=== PATIENT | male | born 1945 | race Caucasian/White ===

== ENCOUNTER 2018-02-22 16:15 | Inpatient (IN) | payer MEDICARE ==
[~2018-02-22] VITALS: Ht 177.8 cm; Wt 77.1 kg
--- NOTE | ~2018-02-22 | MORECARE ---
CASE MANAGEMENT DISCHARGE SUMMARY PATIENT: YESSY SARABIA UNIT: [id number] ADM DATE: 02/22/18 AGE: 72 : 47 SEX: M ROOM/BED: D.2222 AUTHOR: GLORIA,DOC PHYSICIAN: REFERRING PHYSICIAN: GEOFFREY LYMAN MD DATE OF SERVICE: 02/24/18 Discharge Plan Patient Name: YESSY SARABIA Facility: [facility]:[place] : 1945 Planned Disposition: Home Anticipated Discharge Date: Discharge Date: Expected LOS: Initial Reviewer: [email or web address] Initial Review Date: 02/24/2018 Generated: 02/24/18 5:48 pm Comments DCP- Discharge Planning Updated by [email or web address]: Lona Ratliff on 02/24/18 3:[address] Patient Name: YESSY SARABIA Admission Status: ER Accout number: [id number] Admission Date: 02-22-2018 : 1945 Admission Diagnosis: Attending: GEOFFREY LYMAN Current LOS: 2 Anticipated DC Date: Planned Disposition: Home Primary Insurance: [employer] ADV Discharge Planning Comments: CM met with patient to discuss discharge planning. He lives with his fianc?e, Krys and child Marleny. He states he is independent with all ADL's and IADL's. States he is still working. States he does have a nebulizer that he uses as needed. States he does not have need for additional DME at this time. Declines need for home health. No needs identified at this time. CM will continue to follow and assist with discharge planning/needs. Hunter Trapper: Lona Ratliff DCPIA - Discharge Planning Initial Assessment Updated by [email or web address]: Lona Ratliff on 02/24/18 4:42 pm * Is the patient Alert and Oriented? Yes * How many steps to enter\exit or inside your home? 2/0 * PCP Dr. Peng in [place] Mainly sees John Lujan at Dr. Mccain's office * Pharmacy [facility] in [place] * Preadmission Environment Home with Family * ADLs Independent * Equipment Nebulizer * List name and contact numbers for known caregivers / representatives who currently or will assist patient after discharge: Krys Baldwin [phone] * Verbal permission to speak to the caregivers and representatives has been obtained from the patient. Yes * Community resources currently utilized None * Additional services required to return to the preadmission environment? No * Can the patient safely return to the preadmission environment? Yes * Has this patient been hospitalized within the prior 30 days at any hospital? No Last DP export: 02/24/18 3:40 p Patient Name: YESSY SARABIA Page [id number] at 1648 All edits/amendments must be made on the electronic document DICTATION DATE: 02/24/181647 FOUR HORSE HITCH DRIVER: RETA 02/24/181647 RPT#: [id number] DC DATE: STATUS: ADM IN [facility] [address] [place] [address] END OF REPORT
--- NOTE | ~2018-02-22 | CN ---
PATIENT NAME:YESSY SARABIA MEDICAL RECORD: [id number] : [birth year] LOCATION:D.MS [id number] ADMIT DATE: 02/22/18 ACCOUNT: [id number] CONSULTING PHYSICIAN: DONNA LANDRY MD REFERRING PHYSICIAN: GEOFFREY LYMAN MD DATE OF CONSULTATION: 02/25/2018 DIAGNOSES: 1. Claudication. 2. Peripheral vascular disease. 3. Previous peripheral stenting. 4. Pneumonia. 5. COPD. 6. Smoking. 7. Hyperlipidemia. 8. Hypertension. HISTORY OF PRESENT ILLNESS: This is a gentleman with a past history of peripheral vascular disease, but no history of coronary artery disease, presents with 2 complaints, one is cough, sputum production, found to have pneumonia, he is undergoing treatment for that, but the other is claudication symptomatology right lower extremity. He does have stents in both lower extremities from previous peripheral intervention done in [place] approximately 2 years ago. The leg is worsening with any mild exertion even across 1 room. He has severe lifestyle limiting claudication. PHYSICAL EXAMINATION: GENERAL APPEARANCE: Well-nourished, well-developed, appears stated age. Level of distress, comfortable. PSYCHIATRIC: Mental status, alert, normal affect. Orientation, oriented to time, place and person. EYES: Lids and conjunctiva, noninjected. No discharge, no pallor. ENT: Lips, teeth, gums, normal dentition. Oropharynx, no cyanosis, no pallor. NECK: Carotid arteries, bilateral normal upstroke, no bruits, no thrills. JUGULAR VEINS: No jugular venous pressure or distention. CERVICAL LYMPH NODES: Nontender, nonenlarged. THYROID: Not enlarged. Nontender. No nodules. LUNGS: Respiratory effort, unlabored. CHEST: Normal curvature. No thoracic deformity. No chest wall tenderness. Percussion, resonant. Auscultation, clear. No wheezes, no rales, no rhonchi. CARDIOVASCULAR: Precordial exam, nondisplaced. No heaves or pericardial thrills. Rate and rhythm, regular. Heart sounds, normal S1, normal S2. No S3, no gallop, no rub. Systolic murmur, not heard. Diastolic murmur, not heard. EXTREMITIES: No cyanosis, no edema. Peripheral pulses, full and equal in all extremities, except as noted. No bruits appreciated. ABDOMEN: Soft, nondistended. Normal aorta. No bruit. Nontender. No masses. Liver, nontender, no hepatomegaly. Spleen, nontender, no splenomegaly. MUSCULOSKELETAL: No joint tenderness. No joint swelling. No erythema. NEUROLOGICAL: Normal gait, normal strength, normal tone. SKIN: Warm and dry. OVERALL IMPRESSION: Claudication, right lower extremity, most likely he has either semi-acute closure of the previously placed stents or new disease. We will proceed with aortofemoral runoff. Further care depends on findings of the aortofemoral runoff. CONSULT REPORT [id number] YESSY SARABIA TRANSINT:[id number] Voice Confirmation ID: [id number] DOCUMENT ID: [id number] DONNA LANDRY MD at 1025 CC: [id number] DICTATION DATE: 02/25/18816 MANUSCRIPTS ARCHIVIST: 02/25/18 0913 ADM IN [place] [id number] [place] [id number]
--- NOTE | ~2018-02-22 | MORECARE ---
CASE MANAGEMENT DISCHARGE SUMMARY PATIENT: YESSY SARABIA UNIT: [id number] ADM DATE: 02/22/18 AGE: 72 : [birth year] SEX: M ROOM/BED: D.2222 AUTHOR: ZAID CASTRO PHYSICIAN: REFERRING PHYSICIAN: GEOFFREY LYMAN MD DATE OF SERVICE: 02/24/18 Discharge Plan Patient Name: YESSY SARABIA Facility: [facility]:[place] : 1945 Planned Disposition: Home Anticipated Discharge Date: Discharge Date: Expected LOS: Initial Reviewer: [email or web address] Initial Review Date: 02/24/2018 Generated: 02/24/18 5:40 pm Patient Name: YESSY SARABIA Page [id number] at 1640 All edits/amendments must be made on the electronic document DICTATION DATE: 02/24/18 1639 SOLE CONDITIONER: RETA 02/24/18 1639 RPT#: [id number] DC DATE: STATUS: ADM IN [facility] [address] [place] [address] END OF REPORT
--- NOTE | ~2018-02-22 | MORECARE ---
CASE MANAGEMENT DISCHARGE SUMMARY PATIENT: YESSY SARABIA UNIT: [id number] ADM DATE: 02/22/18 AGE: 72 : [birth year] SEX: M ROOM/BED: D.3346 AUTHOR: GLORIA,DOC PHYSICIAN: REFERRING PHYSICIAN: GEOFFREY LYMAN MD DATE OF SERVICE: 02/28/18 Discharge Plan Patient Name: YESSY SARABIA Facility: [facility]:[place] : 1945 Planned Disposition: Home Anticipated Discharge Date: 02/27/18 Discharge Date: 02/27/2018 Expected LOS: 5 Initial Reviewer: [email or web address] Initial Review Date: 02/24/2018 Generated: 02/28/18 1:12 pm Comments DCP- Discharge Planning Updated by [email or web address]: Lona Ratliff on 02/24/18 3:[address] Patient Name: YESSY SARABIA Admission Status: ER Accout number: [id number] Admission Date: 02-22-2018 : 1945 Admission Diagnosis: Attending: GEOFFREY LYMAN Current LOS: 2 Anticipated DC Date: Planned Disposition: Home Primary Insurance: [employer] ADV Discharge Planning Comments: CM met with patient to discuss discharge planning. He lives with his fianc?e, Krys and child Marleny. He states he is independent with all ADL's and IADL's. States he is still working. States he does have a nebulizer that he uses as needed. States he does not have need for additional DME at this time. Declines need for home health. No needs identified at this time. CM will continue to follow and assist with discharge planning/needs. Card Brusher: Lona Ratliff DCPIA - Discharge Planning Initial Assessment Updated by [id number]: Lona Ratliff on 02/24/18 4:42 pm * Is the patient Alert and Oriented? Yes * How many steps to enter\exit or inside your home? 2/0 * PCP Dr. Peng in [place] Mainly sees John Lujan at Dr. Mccain's office * Pharmacy [facility] in [place] * Preadmission Environment Home with Family * ADLs Independent * Equipment Nebulizer * List name and contact numbers for known caregivers / representatives who currently or will assist patient after discharge: Krys Huerta Nicolasa [phone] * Verbal permission to speak to the caregivers and representatives has been obtained from the patient. Yes * Community resources currently utilized None * Additional services required to return to the preadmission environment? No * Can the patient safely return to the preadmission environment? Yes * Has this patient been hospitalized within the prior 30 days at any hospital? No Coverage Notice Reviewer: [id number] Lobito Charles Notice Issued Date-Time: 02/27/2018 12:25 Notice Type: IM Discharge Notice Notice Delivered To: Patient Relationship to Patient: Pony Rougher Name: Delivery Method: HAND - Hand Delivered Nichelle Days: Prior Verbal Notification: Recipient Understood Notice: Yes Recipient Signature: Yes Med Rec Note Co-signed by Attending: Coverage Notice Comment: CM discussed discharge IMM with the patient. He reviewed the form and had no questions or concerns. Signature obtained. Copy to the patient. Copy to the patient chart. Last DP export: 02/27/18 11:43 a Patient Name: YESSY SARABIA Page [id number] at 1212 All edits/amendments must be made on the electronic document DICTATION DATE: 02/28/18 121 EXPANSION JOINT FINISHER: RETA 02/28/18 121 RPT#: [id number] DC DATE:02/27/18 STATUS: DIS IN [facility] [address] [place] [address] END OF REPORT
--- NOTE | ~2018-02-22 | OP ---
PATIENT NAME: YESSY SARABIA MEDICAL RECORD: [id number] :[birth year] LOCATION:D.M2 D.2115 ADMISSION DATE:02/22/18 SURGEON: DONNA LANDRY MD DATE OF OPERATION: 02/25/2018 PROCEDURES: 1. Stent placement, iliac, left. 2. GENERAL FARMWORKER iliac, left. 3. Aortofemoral runoff. 4. Abdominal angiography. INDICATION: Claudication and peripheral vascular disease. PROCEDURE IN DETAIL: After informed consent was obtained and after a detailed description of risks, benefits as well as alternative therapies, the patient elected to proceed with angiogram and angioplasty. The left femoral area was prepped and draped in normal sterile fashion. Left femoral artery was cannulated via modified Seldinger technique with placement of 6-[place] sheath. All catheters exchanged through this sheath. FINDINGS: The abdominal aortography was performed. The catheter was pulled down for aortofemoral runoff. Abdominal aortography reveals no significant abdominal aortic disease, no dissection or aneurysm formation. RIGHT LEG: A. Iliac: The common internal and external iliacs have moderate irregularities, but no flow-limiting stenosis. B. Femoral system: The common and deep femoral are widely patent. Superficial femoral was totally occluded from the ostium to the distal aspect. There are previously placed stents in the mid SFA. These were totally occluded. This reconstitutes via collaterals off the deep femoral. The distal SFA has a good lumen suitable for grafting. C. Popliteal and infrapopliteal vessels are patent with preserved 3-vessel runoff to the foot. LEFT LEG: A. Iliac: Common iliac in the distal portion has 80+ percent stenosis, otherwise the iliacs have moderate irregularities. B. Femoral system: The common superficial and deep femoral have moderate irregularities, but no flow-limiting stenosis. C. Popliteal and infrapopliteal vessels are patent with good 3-vessel runoff to the foot. GENERAL FARMWORKER STENT OF THE LEFT COMMON ILIAC: This balloon and stent used was a 8 x 18 Cordis Veronica. Result was 0% residual. OVERALL IMPRESSION: Successful GENERAL FARMWORKER stent of the left common iliac going from 80+ percent stenosis to 0% residual throughout. There was a total occlusion of the right SFA that is not amenable to transcatheter revascularization. Evaluate for femoral popliteal bypass graft surgery. TRANSINT:[id number] Voice Confirmation ID: [id number] DOCUMENT ID: [id number] OPERATIVE REPORT [id number] YESSY SARABIA, DONNA PERALTA at 1108 CC: [id number] DICTATION DATE: 02/25/18 1539 SYSTEMS ACCOUNTANT: 02/25/18 2357 DIS IN 02/27/18 [place] [id number] [place] [id number]
--- NOTE | ~2018-02-22 | HEMODYNAMI ---
PATIENT:YESSY SARABIA MEDICAL RECORD: [id number] : 47 [id number] ADMISSION DATE: 02/22/18 Generatedon:02/25/201815:51 Patient name: YESSY SARABIA Patient #: [id number] SSN: : 1945 Date of study: 02/25/2018 Page: Of Hemodynamic Procedure Report Patient Data Patient Demographics Procedure consent was obtained First Name: YESSY Gender: Male Last Name: NO : 1945 [facility] Initial: MENDEZ Age: 72 year(s) Patient #: [id number] Race: Additional ID: [id number] Contact details Address: [address] [place] [address] State: [place] City: [place] Zip code: [address] Admission Admission Data Admission Date: 02/22/2018 Admission Time: 18:50 Room #: D.2222 Procedure Procedure Types Cath Procedure Peripheral Cath Diagnostic Procedure Technical Illustrator Peripheral Procedures Eezcl-Oeaomkx-Rld-Off Peripheral vascular Intervention Stent Stent Iliac w/plasty Initial Procedure Description Procedure Date Procedure Date: 02/25/2018 Procedure Start Time: 15:21 Procedure End Time: 15:38 Procedure Staff Name Function Chirag Bravo MD Performing Physician Florinda Hernandez RT Monitor Valerie Zamarripa RT Scrub Danielle Castorena RN Nurse Procedure Data Cath Procedure Fluoroscopy Diagnostic fluoroscopy Total fluoroscopy Time: 1.6 time: 1.6 min min Diagnostic fluoroscopy Total fluoroscopy dose: 159 dose: 159 mGy mGy Contrast Material Contrast Material Type Amount (ml) Isovue 300 93 Entry Location Entry Primary Successful Side Size Upsize Upsize Entry Closure Succes sful Closure Location (Fr) 1 (Fr) 2 (Fr) Remarks Device Remarks Femoral Left 5 Fr 6 Fr 6 Fr Exoseal artery Long Short Estimated blood loss: 5 ml Diagnostic catheters Device Type Used For End Catheter Placement DIAGNOSTIC UF 5Fr Multi-vessel catheter ([id number]) Angiography Procedure Complications No complications Procedure Medications Medication Administration Route Dosage 0.9% NaCl I.V. 100 ml/hr Oxygen etCO2 Nasal cannula 2 l/min Lidocaine 2% added to field 20 Heparin Flush Bag added to field 2 bags (1000units/500ml NS) Heparin Bolus I.V. 4000 units Versed I.V. 2 mg Fentanyl I.V. 100 mcg Versed I.V. 2 mg Fentanyl I.V. 100 mcg Versed I.V. 2 mg Hemodynamics Rest Heart Rate: 94 (bpm) Snapshots Pre Cath Intra NCS Post Cath Vital Signs Time Heart Resp SPO2 etCO2 NIBP (mmHg) Rhythm Pain Sedation Rate (ipm) (%) (mmHg) Status Level (bpm) 15:12:44 98 10 98 36.3 159/98(144) NSR 0 (11) 10(A) , No pain 15:17:04 96 16 97 23.4 146/81(116) NSR 0 (11) 10(A) , No pain 15:21:20 92 10 97 20 138/82(108) NSR 0 (11) 10(A) , No pain 15:26:05 95 19 95 23.4 120/79(90) NSR 0 (11) 10(A) , No pain 15:30:56 96 17 98 37.1 136/83(110) NSR 0 (11) 10(A) , No pain 15:35:05 96 18 94 9.8 143/86(112) NSR 0 (11) 9(A) , No pain Medications Time Medication Route Dose Verified Delivered Reason Notes Effectiveness by by 14:38:58 0.9% NaCl I.V. 100 Chirag Danielle used for ml/hr Lawrence Castorena study abroad coordinator 14:39:05 Oxygen etCO2 2 Chirag Danielle used for Nasal l/min Lawrence Castorena procedure cannula RN 14:39:12 Lidocaine 2% added 20ml Chirag Beard for local to vial Lawrence Bravo MD anesthetic field 14:39:17 Heparin Flush added 2 Chirag Chirag used for Bag to bags Lawrence Bravo MD procedure (1000units/500ml field NS) 15:19:12 Versed I.V. 2 mg Chirag Danielle for sedation Lawrence Castorena RN 15:19:22 Fentanyl I.V. 100 Chirag Danielle for mcg Lawrence Castorena anticoagulation RN 15:24:21 Versed I.V. 2 mg Chirag Santos for Lawrence Castorena anticoagulation RN 15:24:34 Fentanyl I.V. 100 Chirag Santos for mcg Lawrence Castorena anticoagulation RN 15:28:01 Heparin Bolus I.V. 4000 Chirag Beard for verif ied units Lawrence Bravo MD anticoagulation with Dr. Bravo 15:28:43 Versed I.V. 2 mg Chirag Santos for Lawrence Castorena anticoagulation whittling room operator Log Time Note 14:31:12 Informed consent obtained and on chart 14:38:58 0.9% NaCl 100 ml/hr I.V. was administered by Danielle Castorena RN; used for procedure; 14:39:05 Oxygen 2 l/min etCO2 Nasal cannula was administered by Danielle Castorena RN; used for procedure; 14:39:12 Lidocaine 2% 20ml vial added to field was administered by Chirag Bravo MD; for local anesthetic; 14:39:17 Heparin Flush Bag (1000units/500ml NS) 2 bags added to field was administered by Chirag Bravo MD; used for procedure; 14:40:11 Valerie Counts RT(R) sent for patient. Start room use. 15:01:20 Time tracking: Regular hours (M-F 7:00 - 5:00) 15:01:24 Plan of Care:Hemodynamics will remain stable., Cardiac rhythm will remain stable., Comfort level will be maintained., Respiratory function will remain adequate., Patient/ family verbilizes understanding of procedure., Procedure tolerated without complication., Recovers from procedure without complications.. 15:06:02 Patient received from Med/Surg to CCL 1 Alert and oriented. Tansferred to table in Supine position. 15:06:03 Warm blankets applied, and pawan hugger turned on for patient comfort. 15:06:04 Warm blankets applied, and pawan hugger turned on for patient comfort. 15:06:04 Correct patient and procedure confirmed by team. 15:06:05 ECG and BP/O2 sat monitors applied to patient. 15:10:52 Vital chart was started 15:16:43 IV started by Danielle Castorena RN inright hand with a 20 gauge IV catheter with 0.9% NaCl at KVO. 15:16:46 Lab results completed and on chart. 15:17:16 Use device set Femoral Dx 15:17:18 ACIST Syringe (96343) opened to sterile field. 15:17:18 Bag Decanter (2001S) opened to sterile field. 15:17:19 Medline Cath Pack ([id number]) opened to sterile field. 15:17:19 DIAGNOSTIC WIRE .035 260cm J wire (910014) opened to sterile field. 15:17:21 ACIST Hand Control (57986) opened to sterile field. 15:17:21 ACIST Manifold (01722) opened to sterile field. 15:17:23 Tegaderm 4 x 4 (1626W) opened to sterile field. 15:17:24 SHEATH 5FR Winside (GQT973) opened to sterile field. 15:17:40 Baseline sample Acquired. 15:17:44 Rhythm: sinus rhythm 15:17:46 Full Disclosure recording started 15:17:50 H&P Date Dictated: 02/25/2018 Within 30 days and on chart., H&P Addendum completed by physician on day of procedure. (MUST COMPLETE FOR ALL OUTPATIENTS). 15:17:51 Pre-procedure instructions explained to patient. 15:17:52 Pre-op teaching completed and patient verbalized understanding. 15:17:54 Family in waiting room. 15:17:55 Patient NPO since Midnight. 15:17:56 Is the patient allergic to Iodine/contrast media? No. 15:17:58 Was the patient premedicated? No 15:17:58 Is patient on blood thinner?Yes 15:18:02 ACC The patient was administered the following blood thiners within the last 24 hours: ACCPlavix 15:18:05 Patient diabetic? No. 15:18:07 Previous problem with sedation/anesthesia? No ? 15:18:09 Snore? Yes 15:18:10 Sleep apnea? No 15:18:11 Deviated septum? No 15:18:12 Opens mouth fully? Yes 15:18:13 Sticks out tongue? Yes 15:18:17 Airway obstruction? Yes copd 15:18:21 Dentures? No ? 15:18:26 Pre procedure: right dorsailis pedis pulse Doppler 15:18:30 Pre procedure: left dorsailis pedis pulse Doppler 15:18:32 Patient pain scale 0/10 ?. 15:18:43 IV right antecubital D/C'd due to infiltration. 15:19:12 Versed 2 mg I.V. was administered by Danielle Castorena RN; for sedation; 15:19:22 Fentanyl 100 mcg I.V. was administered by Danielle Castorena RN; for anticoagulation; 15:19:25 Bilateral groins area was prepped with chlora-prep and draped in sterile fashion 15::31 Alarms reviewed by R. N. 15::35 Sharps counted by scrub and verified by R.N. 15::38 Physician arrived 15::42 --------ALL STOP TIME OUT------ 15::46 Final Timeout: patient, procedure, and site verified with staff and physician. All members of the team are in agreement. 15:19:50 Bilateral groins site verified by team. 15::53 Physical assessment completed. ASA score P 2 - A patient with mild systemic disease as per Chirag Bravo MD. 15:19:57 Sedation plan: IV Moderate Sedation Medication:Versed, Fentanyl 15:21:49 Procedure started. 15:21:54 Local anesthetic to left femerol artery with Lidocaine 2% by Chirag Bravo MD.INITIAL ACCESS ONLY 15:24:02 A 5 Fr sheath was inserted into the Left Femoral artery 15:24:21 Versed 2 mg I.V. was administered by Danielle Castorena RN; for anticoagulation; 15::34 Fentanyl 100 mcg I.V. was administered by Danielle Castorena RN; for anticoagulation; 15:24:45 A DIAGNOSTIC UF 5Fr catheter ([id number]) was advanced over the wire and used for Multi-vessel Angiography. 15:26:05 Abdominal angiogram w/ runoff was performed. 15:26:14 SHEATH 6FR Brite Tip 35cm ([id number]) opened to sterile field. 15:27:47 Sheath upsized to a 6 Fr Long. 15:28:01 Heparin Bolus 4000 units I.V. was administered by Chirag Bravo MD; for anticoagulation; verified with Dr. Bravo 15::43 Versed 2 mg I.V. was administered by Danielle Castorena RN; for anticoagulation; 15:30:06 Place stent Inflation Number: 1 A JASON 8 x 18 x 135 stent ([id number]) was prepped and advanced across the Mid Common Iliac, Left. The stent was deployed at 9 JEROME for 0:10 (min:sec). 15:30:24 Stent catheter was removed intact over wire. 15:30:34 Sheath upsized to a 6 Fr Short. 15:30:42 EXOSEAL 6Fr (EX600) opened to sterile field. 15:30:57 Sheath removed intact; hemostasis achieved with Exoseal to the Left Femoral artery. 15:36:20 Procedure ended.(Physican Out) 15:36:24 Fluoroscopy time 01.60 minutes. 15:36:27 Fluoroscopy dose: 159 mGy 15:36:27 Flurop Dose total: 159 15:36:35 Contrast amount:Isovue 300 93ml. 15:36:37 Sharps counted by scrub and verified by R.N. 15:36:38 Insertion/operative site no bleeding no hematoma. 15:36:42 Post-op/insertion site Left Femoral artery dressed using a 4 x 4 and Tegaderm. 15:36:45 Post left femerol artery:stable 15:36:47 Post Procedure Pulses reassessed and unchanged 15:36:50 Post procedure rhythm: unchanged. 15:36:53 Estimated blood loss: 5 ml 15:36:55 Post procedure instruction explained to patient.Patient verbalizes understanding. 15:36:55 Patient needs reinforcement of post procedure teaching. 15:37:34 Procedure type changed to Cath procedure, Peripheral Cath Diagnostic Procedure, Technical Illustrator Peripheral Procedures, Jhoow-Qmegnmw-Mkw-Off, Peripheral vascular Intervention, Stent, Stent Iliac w/plasty Initial 15:37:35 Procedure and supply charges have been captured, reviewed, submitted and are correct. 15:37:40 Procedure Complication : No complications 15:37:42 Vital chart was stopped 15:37:43 See physician's report for complete and final results. 15:37:58 Report given to Med II. 15:38:01 Patient transfered to Med II with Stretcher. 15:38:04 Procedure ended. 15:38:04 Full Disclosure recording stopped 15:38:13 ACC-PCI Only Patient was given prescriptions, or instructed by Chirag Bravo MD to start/continue the following medications upon discharge: Plavix 15:38:14 End room use (Document Last) Intervention Summary Intervention Notes Time ActionType Lesion and Equipment Action# Pressure Duration Attributes Used 15:30:06 Place stent Mid Common JASON 8 x 1 9 00:10 Iliac, Left 18 x 135 stent ([id number]) Device Usage Item Name Manufacture Quantity Catalog Hospital Part Current Minimal L ot# / Number Charge Number Stock Stock Serial# Code ACIST Acist 1 68742 690967 943548 265522 20 Syringe Medical (70637) Systems Inc Bag Microtek 1 2001S 437359 23004 668862 5 Decanter Medical Inc. () Medline Medline 1 [id number] 120048 12732 936907 5 Cath Pack ([id number]) DIAGNOSTIC St Alcides 1 329659 659107 807751 815994 30 WIRE .035 260cm J wire (842865) ACIST Hand Acist 1 64010 409285 909857 005235 5 Control Medical (18857) Systems Inc ACIST Acist 1 03199 346963 713332 695041 5 Manifold Medical (47320) Systems Inc Tegaderm 4 3M 1 1626W 348592 278517 741406 5 x 4 (1626W) SHEATH 5FR Terumo 1 [id number] 486513 345514 686632 5 Winside (OUT860) DIAGNOSTIC Cardinal 1 [id number] 771073 667149 902438 10 UF 5Fr Health catheter ([id number]) SHEATH 6FR Cardinal 1 [id number] 760932 703572 720874 1 Brite Tip Health 35cm (086938E) JASON 8 x Cardinal 1 [id number] 867304 951443 5 1 6710144 18 x 135 Health stent ([id number]) EXOSEAL 6Fr Cardinal 1 EX600 096990 601080 259162 10 (EX600) Health Signature Audit [place] Stage Time Signature Unsigned Intra-Procedure 02/25/2018 Florinda Hernandez 3:51:20 PM RT(R) Signatures Monitor : Florinda Hernandez RT Signature : Date : Time : [facility] [address] [place] [address]
--- NOTE | ~2018-02-22 | MORECARE ---
CASE MANAGEMENT DISCHARGE SUMMARY PATIENT: YESSY SARABIA UNIT: [id number] ADM DATE: 02/22/18 AGE: 72 : 47 SEX: M ROOM/BED: D.3857 AUTHOR: GLORIA,DOC PHYSICIAN: REFERRING PHYSICIAN: GEOFFREY LYMAN MD DATE OF SERVICE: 02/27/18 Discharge Plan Patient Name: YESSY SARABIA Facility: [facility]:[place] : 1945 Planned Disposition: Home Anticipated Discharge Date: 02/27/18 Discharge Date: Expected LOS: 5 Initial Reviewer: [email or web address] Initial Review Date: 02/24/2018 Generated: 02/27/18 1:43 pm Comments DCP- Discharge Planning Updated by [email or web address]: Lona Ratliff on 02/24/18 3:[address] Patient Name: YESSY SARABIA Admission Status: ER Accout number: [id number] Admission Date: 02-22-2018 : 1945 Admission Diagnosis: Attending: GEOFFREY LYMAN Current LOS: 2 Anticipated DC Date: Planned Disposition: Home Primary Insurance: [facility] MEDICARE ADV Discharge Planning Comments: CM met with patient to discuss discharge planning. He lives with his fianc?e, Krys and child Marleny. He states he is independent with all ADL's and IADL's. States he is still working. States he does have a nebulizer that he uses as needed. States he does not have need for additional DME at this time. Declines need for home health. No needs identified at this time. CM will continue to follow and assist with discharge planning/needs. Branch Or Department Chief Librarian: Lona Ratliff DCPIA - Discharge Planning Initial Assessment Updated by [email or web address]: Lona Ratliff on 02/24/18 4:42 pm * Is the patient Alert and Oriented? Yes * How many steps to enter\exit or inside your home? 2/0 * PCP Dr. Peng in [place] sees John Lujan at Dr. Mccain's office * Pharmacy [facility] in [place] * Preadmission Environment Home with Family * ADLs Independent * Equipment Nebulizer * List name and contact numbers for known caregivers / representatives who currently or will assist patient after discharge: Krys Baldwin [phone] * Verbal permission to speak to the caregivers and representatives has been obtained from the patient. Yes * Community resources currently utilized None * Additional services required to return to the preadmission environment? No * Can the patient safely return to the preadmission environment? Yes * Has this patient been hospitalized within the prior 30 days at any hospital? No Coverage Notice Reviewer: [id number] Lobito Charles Notice Issued Date-Time: 02/27/2018 12:42 Notice Type: IM Discharge Notice Notice Delivered To: Patient Relationship to Patient: Fur Finisher Name: Delivery Method: - Nichelle Days: Prior Verbal Notification: Recipient Understood Notice: Recipient Signature: Med Rec Note Co-signed by Attending: Coverage Notice Comment: Last DP export: 02/24/18 3:48 p Patient Name: YESSY SARABIA Page [id number] at 1243 All edits/amendments must be made on the electronic document DICTATION DATE: 02/27/18 1243 AUTOMATION TESTER: RETA 02/27/18 1243 RPT#: [id number] DC DATE: STATUS: ADM IN [facility] [address] [place] [address] END OF REPORT
[2018-02-22 17:42] LABS: BASOPHILS 0.1 % (0-2); EOSINOPHILS 0.3 % (0-7); HEMATOCRIT 47.5 % (42.0-54.0); HEMOGLOBIN 16.4 g/dL (13.5-17.5); IMMATURE GRANULOCYTES 0.3 % (0-5); LYMPHOCYTES 13.1 % (15-50); MCH 29.9 pg (26.0-34.0); MCHC 34.5 g/dL (31.0-37.0); MCV 86.7 fL (80.0-100.0); MEAN PLATELET VOLUME 9.8 fL (7.4-10.4); MONOCYTES 9.1 % (2-11); NEUTROPHILS 77.1 % (40-80); PLATELET COUNT 260 10x3/uL (130-400); RBC 5.48 10x6/uL (4.20-6.10); WBC 14.2 10x3/uL (4.8-10.8)
[2018-02-22 17:57] LABS: ALBUMIN 3.4 g/dL (3.4-5.0); ALKALINE PHOSPHATASE 62 U/L (46-116); ALT (SGPT) 14 U/L (10-68); CALC OSMOLALITY 282 mosm/kg (275-300); CARBON DIOXIDE 34.4 mmol/L (21.0-32.0); CHLORIDE - SERUM 98 mmol/L (98-107); CREATININE - SERUM 1.1 mg/dL (0.6-1.3); GLUCOSE 106 mg/dL (74-106); POTASSIUM - SERUM 3.3 mmol/L (3.5-5.1); PROTEIN - SERUM 7.5 g/dL (6.4-8.2); SODIUM 141 mmol/L (136-145); UREA NITROGEN 18 mg/dL (7-18); eGFR NON AFRICAN AMERICAN 70 mL/min (90-120)
[2018-02-22 18:11] LABS: CKMB 0.4 U/L (0.0-3.6); CREATINE KINASE 23 UL (21-232); PRO BNP 133 pg/mL (0-125); TROPONIN-I < 0.017 ng/mL (0.000-0.060)
[2018-02-22] MEDS ORDERED: ULTRAM50 MG PO (21:14)
[2018-02-22] MEDS ORDERED: ACETAMINOPHEN325 MG PO (21:16)
[2018-02-22] MEDS ORDERED: COREG6.25 MG PO (21:18)
[2018-02-22] MEDS ORDERED: ZOCOR40 MG PO (21:19)
[2018-02-22] MEDS ORDERED: VALIUM10 MG PO (21:19)
[2018-02-22 22:32] VITALS: BP 114/60; BMI 24.4
[2018-02-23 06:19] VITALS: BP 115/65
[2018-02-23 08:35] VITALS: BP 122/76
[2018-02-23 08:49] LABS: BASOPHILS 0 % (0-2); EOSINOPHILS 0 % (0-7); HEMATOCRIT 46.7 % (42.0-54.0); IMMATURE GRANULOCYTES 0.3 % (0-5); LYMPHOCYTES 9.9 % (15-50); MCH 30.4 pg (26.0-34.0); MCHC 34.3 g/dL (31.0-37.0); MCV 88.6 fL (80.0-100.0); MEAN PLATELET VOLUME 9.9 fL (7.4-10.4); MONOCYTES 2.9 % (2-11); NEUTROPHILS 86.9 % (40-80); PLATELET COUNT 246 10x3/uL (130-400); RBC 5.27 10x6/uL (4.20-6.10); RDW 13.2 % (11.5-14.5); WBC 17.2 10x3/uL (4.8-10.8)
[2018-02-23 08:58] LABS: ANION GAP 11.5 mmol/L (8-16); CALCIUM 9.4 mg/dL (8.5-10.1); CARBON DIOXIDE 35.4 mmol/L (21.0-32.0); CREATININE - SERUM 1.1 mg/dL (0.6-1.3)
[2018-02-23 09:01] LABS: POTASSIUM - SERUM 3.9 mmol/L (3.5-5.1)
[2018-02-23 11:00] VITALS: Ht 177.8 cm; Wt 77.1 kg
[2018-02-23 12:37] VITALS: BP 132/69
[2018-02-23] MEDS ORDERED: ACCUPRIL20 MG PO (13:44)
[2018-02-23] MEDS ORDERED: PLAVIX75 MG PO (13:45)
[2018-02-23] MEDS ORDERED: HCTZ25 MG PO (13:46)
[2018-02-23 17:11] VITALS: BP 109/61
[2018-02-23 17:47] VITALS: BP 109/61
[2018-02-23 20:45] VITALS: BP 99/62
[2018-02-24 01:09] VITALS: BP 112/54
[2018-02-24 04:49] VITALS: BP 102/60
[2018-02-24 06:26] LABS: BASOPHILS 0.1 % (0-2); EOSINOPHILS 0.1 % (0-7); HEMATOCRIT 41.4 % (42.0-54.0); HEMOGLOBIN 13.6 g/dL (13.5-17.5); IMMATURE GRANULOCYTES 0.2 % (0-5); MCH 29.4 pg (26.0-34.0); MCHC 32.9 g/dL (31.0-37.0); MCV 89.4 fL (80.0-100.0); MEAN PLATELET VOLUME 9.8 fL (7.4-10.4); MONOCYTES 7.2 % (2-11); NEUTROPHILS 75.4 % (40-80); PLATELET COUNT 234 10x3/uL (130-400); RBC 4.63 10x6/uL (4.20-6.10); RDW 13.6 % (11.5-14.5)
[2018-02-24 06:30] LABS: WBC 11.2 10x3/uL (4.8-10.8)
[2018-02-24 06:38] LABS: CALCIUM 8.4 mg/dL (8.5-10.1); CARBON DIOXIDE 36.2 mmol/L (21.0-32.0); CHLORIDE - SERUM 104 mmol/L (98-107); SODIUM 147 mmol/L (136-145); UREA NITROGEN 31 mg/dL (7-18); eGFR NON AFRICAN AMERICAN 78 mL/min (90-120)
[2018-02-24 06:40] LABS: CALC OSMOLALITY 298 mosm/kg (275-300); GLUCOSE 92 mg/dL (74-106); POTASSIUM - SERUM 3.1 mmol/L (3.5-5.1)
[2018-02-24 08:33] VITALS: BP 126/49
[2018-02-24 12:00] VITALS: BP 123/85
[2018-02-24 16:20] VITALS: BP 127/68
[2018-02-24 20:31] VITALS: BP 124/71
[2018-02-25 00:50] VITALS: BP 117/56
[2018-02-25 04:06] LABS: BASOPHILS 0.1 % (0-2); EOSINOPHILS 1.1 % (0-7); HEMATOCRIT 40.7 % (42.0-54.0); HEMOGLOBIN 13.2 g/dL (13.5-17.5); IMMATURE GRANULOCYTES 0.3 % (0-5); MCH 29.4 pg (26.0-34.0); MCHC 32.4 g/dL (31.0-37.0); MCV 90.6 fL (80.0-100.0); MEAN PLATELET VOLUME 9.4 fL (7.4-10.4); MONOCYTES 8.7 % (2-11); NEUTROPHILS 63.8 % (40-80); PLATELET COUNT 220 10x3/uL (130-400); RBC 4.49 10x6/uL (4.20-6.10); RDW 13.6 % (11.5-14.5)
[2018-02-25 04:08] LABS: WBC 7.5 10x3/uL (4.8-10.8)
[2018-02-25 04:17] LABS: CALC OSMOLALITY 293 mosm/kg (275-300); CALCIUM 8.5 mg/dL (8.5-10.1); CARBON DIOXIDE 37.1 mmol/L (21.0-32.0); CHLORIDE - SERUM 106 mmol/L (98-107); CREATININE - SERUM 0.9 mg/dL (0.6-1.3); GLUCOSE 98 mg/dL (74-106); POTASSIUM - SERUM 3.3 mmol/L (3.5-5.1); SODIUM 145 mmol/L (136-145); UREA NITROGEN 27 mg/dL (7-18); eGFR NON AFRICAN AMERICAN 88 mL/min (90-120)
[2018-02-25 09:03] VITALS: BP 149/71
[2018-02-25 12:33] VITALS: BP 138/72
[2018-02-25 19:55] VITALS: BP 164/95
[2018-02-25 23:50] VITALS: BP 103/50
[2018-02-26 03:50] VITALS: BP 115/48
[2018-02-26 05:57] LABS: BASOPHILS 0.2 % (0-2); EOSINOPHILS 2.5 % (0-7); HEMATOCRIT 40.7 % (42.0-54.0); HEMOGLOBIN 13.4 g/dL (13.5-17.5); IMMATURE GRANULOCYTES 0.2 % (0-5); LYMPHOCYTES 30.6 % (15-50); MCH 29.6 pg (26.0-34.0); MCHC 32.9 g/dL (31.0-37.0); MCV 89.8 fL (80.0-100.0); MEAN PLATELET VOLUME 9.7 fL (7.4-10.4); MONOCYTES 9.4 % (2-11); NEUTROPHILS 57.1 % (40-80); PLATELET COUNT 235 10x3/uL (130-400); RBC 4.53 10x6/uL (4.20-6.10); RDW 13.4 % (11.5-14.5); WBC 6.1 10x3/uL (4.8-10.8)
[2018-02-26 06:08] LABS: CALC OSMOLALITY 291 mosm/kg (275-300); CALCIUM 8.2 mg/dL (8.5-10.1); CHLORIDE - SERUM 105 mmol/L (98-107); CREATININE - SERUM 0.8 mg/dL (0.6-1.3); GLUCOSE 98 mg/dL (74-106); POTASSIUM - SERUM 3.6 mmol/L (3.5-5.1); SODIUM 145 mmol/L (136-145); UREA NITROGEN 22 mg/dL (7-18); eGFR NON AFRICAN AMERICAN > 90 mL/min (90-120)
[2018-02-26 07:41] VITALS: BP 122/53
[2018-02-26 11:28] VITALS: BP 146/60
[2018-02-26 15:20] VITALS: BP 149/81
[2018-02-26 19:45] VITALS: BP 116/80
[2018-02-26 23:55] VITALS: BP 136/83
[2018-02-27 03:45] VITALS: BP 138/67
[2018-02-27 04:42] LABS: BASOPHILS 0.1 % (0-2); EOSINOPHILS 2.9 % (0-7); HEMATOCRIT 42.3 % (42.0-54.0); HEMOGLOBIN 14.1 g/dL (13.5-17.5); IMMATURE GRANULOCYTES 0.1 % (0-5); MCH 29.6 pg (26.0-34.0); MCHC 33.3 g/dL (31.0-37.0); MCV 88.9 fL (80.0-100.0); MEAN PLATELET VOLUME 9.6 fL (7.4-10.4); MONOCYTES 10.4 % (2-11); NEUTROPHILS 62.5 % (40-80); PLATELET COUNT 237 10x3/uL (130-400); RBC 4.76 10x6/uL (4.20-6.10); RDW 12.9 % (11.5-14.5)
[2018-02-27 04:56] LABS: CALC OSMOLALITY 288 mosm/kg (275-300); CALCIUM 8.8 mg/dL (8.5-10.1); CARBON DIOXIDE 35.8 mmol/L (21.0-32.0); CHLORIDE - SERUM 105 mmol/L (98-107); CREATININE - SERUM 0.9 mg/dL (0.6-1.3); GLUCOSE 104 mg/dL (74-106); POTASSIUM - SERUM 3.8 mmol/L (3.5-5.1); SODIUM 144 mmol/L (136-145); UREA NITROGEN 19 mg/dL (7-18); eGFR NON AFRICAN AMERICAN 88 mL/min (90-120)
[2018-02-27 05:03] LABS: WBC 8.2 10x3/uL (4.8-10.8)
[2018-02-27 08:15] VITALS: BP 132/57
[2018-02-27] MEDS ORDERED: LEVOFLOXACIN500 MG PO (09:41)
[2018-02-27 11:34] VITALS: BP 133/84
== END 2018-02-27 15:48 | disposition home or self-care (01) | DRG 252 ==
LOC: D.ER 16:15 → D.MS 18:50 → D.EDHOLD 18:50 → D.MS 19:23 → D.M2 02-25 15:46
PROVIDERS: Family Medicine; Internal Medicine Interventional Cardiology; Internal Medicine Nephrology
PROC: 047N3ZZ Dilation of Left Popliteal Artery, Percutaneous Approach (ICD-10-PCS; 2018-02-25)
PROC: 047D3DZ Dilation of Left Common Iliac Artery with Intraluminal Device, Percutaneous Approach (ICD-10-PCS; principal; 2018-02-25 14:40)
PROC: 047L3ZZ Dilation of Left Femoral Artery, Percutaneous Approach (ICD-10-PCS; 2018-02-25 14:40)
DX: T82.856A Stenosis of peripheral vascular stent, initial encounter (principal); J18.9 Pneumonia, unspecified organism; J96.01 Acute respiratory failure with hypoxia; F17.213 Nicotine dependence, cigarettes, with withdrawal; I10 Essential (primary) hypertension; I25.10 Atherosclerotic heart disease of native coronary artery without angina pectoris; J44.9 Chronic obstructive pulmonary disease, unspecified; I70.223 Atherosclerosis of native arteries of extremities with rest pain, bilateral legs